=== PATIENT | male | born 1990 | race Caucasian/White ===

== ENCOUNTER 2017-03-11 16:01 | Emergency (ER) | payer OTHER ==
[~2017-03-11] VITALS: Ht 177.8 cm; Wt 77.3 kg
[~2017-03-11 16:01] MED LIST: CLIN-78 PO; CLON0.1T PO; HYDR-4003 PO; NITR0.4T6 SL; OMEP40CA3 PO
[2017-03-11 16:05] VITALS: BP 154/94; RESP 18; O2SAT 98
--- NOTE | 2017-03-11 17:47 | ED.REPORT ---
HPI-Dental/Mouth Prob Date of Service Mar 11, 2017 ED Provider: Fernandez Flores MD Patient is a 26 year old male who presents to the ED complaining of left upper tooth pain that began this morning. The patient states that he had some swelling at this side of his face when he woke up this morning, but he did not experience any pain. However over the course of the day he developed severe pain around increased swelling. Swelling of his gums became so prominent that they are nearly covering his teeth. He is febrile on arrival to the ED at 38.4C. He is seen by [facility], but has not been at their facility for some time. However today he went to [facility] for evaluation of his dental pain. He was informed that he will need to have two teeth pulled. However he was referred to the ED for IV or IM antibiotics, as there was concern for significant infection. The patient denies difficulty breathing or swallowing. Nursing Notes Stated Complaint: TOOTH AND MOUTH INFECTION Chief Complaint: Dental Nursing Notes Reviewed: Yes Allergies: Coded Allergies: hydrocodone (Verified Allergy, Intermediate, Rash,Itching,, 04/29/16) Scheduled Clindamycin (Clindamycin) 300 Mg Capsule 300 MG PO QID Clindamycin (Clindamycin) 300 Mg Capsule 300 MG PO QID Clonidine (Clonidine) 0.1 Mg Tablet 0.2 MG PO BID Omeprazole (Prilosec) 40 Mg Capsule.dr 40 MG PO DAILY Scheduled PRN Hydrocodone-Acetaminophen 5-325 mg (Hydrocodone-Acetaminophen 5-325 mg) 1 Each Tablet 1 TABLET PO Q4H PRN PRN For Pain Nitroglycerin SL (Nitroglycerin SL) 0.4 Mg Tab.subl 0.4 MG SL Q5MIN PRN PRN For Chest Pain oxyCODONE-Acetaminophen 5-325 mg (oxyCODONE-Acetaminophen 5-325 mg) 1 Each Tablet 1 TAB PO Q4H PRN PRN For Pain General Time Seen by MD: 17:07 Chief Complaint Tooth pain Hx Obtained From: Patient Arrived By: Walk-in Onset Occurred: 9 - 12 hours ago Symptom Duration: Since onset Quality: Painful Severity: Current: Severe Severity: Maximum: Severe Recent Healthcare: No recent doctor visit, No recent hospitalization Similar Sx Previous: Yes Past Medical History Past Medical History Notes: Giselle Cardoso Past Medical History Multiple ED visits for recurrent abd pain, nausea vomiting with extensive workup, including multiple negative CTs, GI referral, negative endoscopy by pt report. Concern for possible cannabis hyperemesis syndrome. Workup on 01/11 for elevated troponin, normal cadiac cath Reports: GERD Past Surgical History Neck cyst removal Family History Reports: CAD < 40 years old Smoking History Current Every Day Smoker Social History Recently moved to [facility] from [facility] around August 2014, has not found a local MD or DDS Alcohol Use: Denies alcohol use Drug Use: THC Other Social History: Good social support, Local resident Occupation lives with girlfriend works at [employer] Amb[employer] Status Independent Review of Systems Constitutional: Reports: Fever Ears / Nose / Throat: Reports: Mouth pain, Toothache Respiratory: Denies: Shortness of breath GI: Denies: Dysphagia Complete sys rev & neg: except as marked. Physical Exam Initial Vital Signs Vital Signs (First) Date Time Temp Pulse Resp B/P Pulse Ox O2 Delivery O2 Flow Rate FiO2 03/11/17 16:05 38.4 107 18 154/94 98 03/11/17 18:38 Room Air Initial VS: Reviewed Skin: Warm, Dry, No cyanosis Neurologic: Alert, Oriented, Nonfocal Psychiatric: Mood/affect normal, Behavior normal, Normal thought content ENT: Airway patent Dental / Gums: Positive: Decay extensive, Dentition poor Abscess about tooth number 11 and 12, fluctuant in appearing. Swelling of the buccal aspect of the gums with mild swelling but without induration or fluctuance. No submental or sublingual swelling. Handling secretions well. No swelling under the neck or of the submandibular region. Neck: Supple, No swelling General/Constitutional: Awake, Alert, No acute distress Head / Eyes: Normocephalic, PERRL Respiratory / Chest: No respiratory distress, No stridor Heart Rate / Rhythm: Positive: Tachycardia Upper Extremity / MS: Full range of motion, No deformity Lower Extremity / Pelvis / MS: Full range of motion, No deformity Procedures Dental Nerve Block Dental Nerve Block Note: Indication: I&D Dental Abscess Time: 18:22 Block Performed by: ED physician Consent / Setup / Site Prep: Consent from patient, Time-out performed, Mucous membrane dried, Hand hygiene observed, Stand sterile technique, Sterile drapes applied Anesthesia: Subperiostial infiltrate Local Anesthesia: Lidocaine 1% Post-Procedure / Complications: No complications, Condition improved, Tolerated procedure well, Patient stable, No bleeding Incision & Drainage Abscess Time: 18:25 Consent / Setup / Site Prep: Consent from patient, Time-out performed, Hand hygiene observed, Stand sterile technique Location of Abscess: left upper jaw Local Anesthesia: Lidocaine 1% Pus Drained: Small, No purulence, Bloody Irrigation: No Post-Procedure / Complications: No complications, Condition improved, Tolerated procedure well, Patient stable Re-Eval/Medical Decision Med Decision/Clinical Course Patient is a 26 year old male who presents to the ED complaining of left upper tooth pain that began this morning. The patient states that he had some swelling at this side of his face when he woke up this morning, but he did not experience any pain. However over the course of the day he developed severe pain around increased swelling. Swelling of his gums became so prominent that they are nearly covering his teeth. He is febrile on arrival to the ED at 38.4C. He is seen by [facility], but has not been at their facility for some time. However today he went to [facility] for evaluation of his dental pain. He was informed that he will need to have two teeth pulled. However he was referred to the ED for possible IV or IM antibiotics, as there was concern for significant infection. The patient denies difficulty breathing or swallowing. Here in the emergency department the patient has obvious dental abscess with a fluctuant region about the buccal aspect of his gums and globally poor dentition with many caries and teeth that appear to need to be pulled. That being said there is no evidence of Dipak angina, airway obstruction or significant cellulitis/abscess involving his face. The region of infection appears to be quite localized. Dental block was performed and is abscess was easily incised and a copious amount of pus was drained. His airway continues to be widely patent and he is nontoxic in appearance. While he was initially febrile this resolved after receiving Tylenol. He clearly needs antibiotics though I do not see any indication that he requires IV antibiotics or admission at this time. He was given a dose of clindamycin here and will follow up this week with his dentist. Patient was discharged home with Oxycodone and Clindamycin. He was advised to return immediately should he develop any increasing swelling, fevers, swelling about the sublingual region, redness/swelling of the face or increasing pain. Prior to discharge follow-up and return precautions were reviewed in detail with the patient who verbalized understanding and agreement with the plan. The patient was discharged in stable condition. Source of Hx: Old records Re-Evaluation/Progress : Time of Eval: 18:30 Patient Status: Condition improved Re-Evaluation/Progress Note: Patient is improved after I&D. Patient understands and agrees with the plan to be discharged home. Discharge instructions and follow-up discussed. It is crucial that he follow-up with his dentist. All questions were addressed. Return to the ED warnings given. Counseled Regarding: Diagnosis, Need for follow-up, When/why to return to ED Discharge & Departure Primary Impression: Dental abscess Additional Impressions: Pain due to dental caries Fever Fever type: unspecified Qualified Code: R50.9 - Fever, unspecified Disposition: Home Discharge Condition All VS Reviewed: Yes Condition: Stable Patient Instructions: Dental Abscess (ED) Additional Instructions: Thank you for seeking care at the emergency room. You were seen today for your dental abscess, which was drained in the emergency department. Our primary goal today in the ED was to evaluate you for any life-threatening conditions. Your evaluation was reassuring. Apply ice packs to the left side of your face to reduce swelling. You will be discharged with a prescription for Clindamycin, an antibiotics. You have also been given Oxycodone, use as directed for pain. It is crucial that you follow-up with your dentist at [facility] as planned. You should return to the ED immediately if you develop worsening fevers, difficulty swallowing, shortness of breath, worsening pain or swelling, or any other concerning signs or symptoms. Thank you for letting us partake in your care today. Narcotic Pain Medicine You have been prescribed a narcotic for pain relief. These drugs are usually combined with acetaminophen (Tylenol#3, Percocet, Darvocet, Anexsia, Vicodin) or aspirin (Empirin#3, Percodan, Synalogs-DC) for increased effect. Narcotics act on the central nervous system to reduce pain; they also impair mental alertness and physical abilities. We advise you not to drink alcohol, drive a car, or operate dangerous equipment when you are taking these drugs. You can lessen stomach irritation from your medicine by taking it with meals or a full glass of water. Common side effects of narcotics are: Nausea and vomiting, heartburn, constipation, dizziness, sleepiness, and mood changes. If you have bothersome side effects or symptoms of an allergic reaction (itching, hives, rash), stop taking your medicine and call your doctor or the emergency room right away. Please keep your narcotic medicine well out of the reach of children. Referrals: Sunita Stone (PCP) Scribe Attestation Portions of this note were transcribed by Patricia Beverly. I, Dr. Flores personally performed the history, physical exam and medical decision-making; I reviewed and confirmed the accuracy of the information in the transcribed note. Signed by: Jazz Marquez, 03/11/2017 [id number] copies to: Sunita Stone Beck O MD Mar 11, 2017 17:47 Patricia Beverly Mar 11, 2017 18:14
[2017-03-11] MEDS ORDERED: CLIN-78 PO (18:30)
[2017-03-11] MEDS ORDERED: OXYC1TAB24 PO (18:30)
[2017-03-11 18:38] VITALS: BP 129/66; PULSE 65; RESP 17; O2SAT 99
== END 2017-03-11 18:39 | disposition home or self-care (01) ==
LOC: SED 16:01
DX: K04.7 Periapical abscess without sinus (principal); R50.9 Fever, unspecified; K21.9 Gastro-esophageal reflux disease without esophagitis; F17.200 Nicotine dependence, unspecified, uncomplicated; Z88.5 Allergy status to narcotic agent

== ENCOUNTER 2017-06-08 13:44 | Emergency (ER) | payer OTHER ==
[~2017-06-08] VITALS: Ht 177.8 cm; Wt 79.5 kg
[~2017-06-08 13:44] MED LIST changes: +OXYC1TAB24 PO
[2017-06-08 13:55] VITALS: BP 140/92; PULSE 100; RESP 20; O2SAT 99
[2017-06-08] MEDS ORDERED: 0.9% Sodium Chloride 1,000 ML IV ONE (17:49)
[2017-06-08] MEDS ORDERED: Clindamycin Inj 600 MG in IV Premix 1 EACH IV ONE (17:55)
--- NOTE | 2017-06-08 18:17 | ED.REPORT ---
HPI-General Illness Date of Service Jun 08, 2017 ED Provider: Jorden Kennedy MD Pt is a 26 year old male who presents to the ED with complaints of right upper teeth pain, onset around 0700 this morning. He reports that the pain and swelling have been increasing since its onset. Pt reports pain at 10/10. He describes the pain as a throbbing. He declines nausea, vomiting, chest pain, shortness of breath, difficulty breathing, or any other symptoms. He reports that this happened to him 2-3 months ago as well. He states that he is in the process of getting his teeth removed to get dentures. Pt declines feeling febrile. He additionally reports the pain radiating upward towards his head, but does not endorse an independent headache. Nursing Notes Stated Complaint: INFECTION/SWELLING FACE AND CHEEK,RIGHT Chief Complaint: General Complaint Nursing Notes Reviewed: Yes Allergies: Coded Allergies: hydrocodone (Verified Allergy, Intermediate, Rash,Itching,, 06/08/17) Scheduled Clindamycin (Clindamycin) 300 Mg Capsule 300 MG PO QID Clindamycin (Clindamycin) 300 Mg Capsule 300 MG PO QID Clindamycin (Clindamycin) 150 Mg Capsule 150 MG PO TID Clonidine (Clonidine) 0.1 Mg Tablet 0.2 MG PO BID Omeprazole (Prilosec) 40 Mg Capsule.dr 40 MG PO DAILY Scheduled PRN Hydrocodone-Acetaminophen 5-325 mg (Hydrocodone-Acetaminophen 5-325 mg) 1 Each Tablet 1 TABLET PO Q4H PRN PRN For Pain Nitroglycerin SL (Nitroglycerin SL) 0.4 Mg Tab.subl 0.4 MG SL Q5MIN PRN PRN For Chest Pain oxyCODONE-Acetaminophen 5-325 mg (oxyCODONE-Acetaminophen 5-325 mg) 1 Each Tablet 1 TAB PO Q4H PRN PRN For Pain General Time Seen by MD: 15:44 Chief Complaint Rash Hx Obtained From: Patient Arrived By: Walk-in Sudden in Onset?: Yes Onset Occurred: 9 - 12 hours ago Symptom Duration: Since onset Location: : Face Quality: Painful Severity: Current: Moderate Severity: Maximum: Severe Similar Sx Previous: Yes Past Medical History Past Medical History Notes: Giselle Cardoso Past Medical History Multiple ED visits for recurrent abd pain, nausea vomiting with extensive workup, including multiple negative CTs, GI referral, negative endoscopy by pt report. Concern for possible cannabis hyperemesis syndrome. Workup on 01/11 for elevated troponin, normal cadiac cath Reports: GERD Past Surgical History Neck cyst removal Family History Reports: CAD < 40 years old Smoking History Current Every Day Smoker Social History Recently moved to [facility] from [facility] around August 2014, has not found a local MD or DDS Alcohol Use: Denies alcohol use Drug Use: THC Other Social History: Good social support, Local resident Occupation lives with girlfriend works at [employer] Status Independent Review of Systems Full Review of Systems Constitutional: Denies: Chills, Fever, Malaise, Weakness - generalized Ears / Nose / Throat: Reports: Toothache Respiratory: Denies: Non-productive cough, Shortness of breath, Wheezing Cardiovascular: Denies: Chest pain, Syncope GI: Denies: Abdominal pain, Constipation, Diarrhea, Nausea, Vomiting Male: Denies Dysuria, Denies Flank pain, Denies Urinary frequency, Denies Urinary urgency Musculoskeletal: Denies: Extremity pain, Neck pain Skin: Reports Rash, Reports Swelling Neurologic: Denies: Change LOC, Dizziness, Headache, Syncope, Weakness Complete sys rev & neg: except as marked. Physical Exam Nursing note and vitals reviewed. Constitutional: Well-developed, well-nourished. Not diaphoretic. Head: Normocephalic and atraumatic. Mouth/Throat: Oropharynx is clear and moist. No oropharyngeal exudate. Poor dentition Area with soreness, about the lateral aspect of his face shows no abscess, small abscess of the right top front tooth. Facial swelling from the angle of the mandible up towards the right eye. No significant erythema Tender on the right side of his face as compared to the left. Eyes: EOM are normal. Pupils are equal, round, and reactive to light. Neck: Supple, no tracheal deviation. Cardiovascular: Normal rate, regular rhythm. Equal and intact distal pulses throughout. Pulmonary/Chest: Effort normal and breath sounds normal. No respiratory distress. Abdominal: Soft. No distension. There is no tenderness, rebound, or guarding. Bowel sounds present. Musculoskeletal: Range of motion grossly intact, moving all extremities. No edema or tenderness appreciated. Neurological: AOx3. Grossly nonfocal exam. Strength and sensation intact and equal to bilateral upper and lower extremities. Skin: Warm and dry, no rashes or pallor appreciated. Psychiatric: Appropriate mood and affect. Behavior appears normal. Vital Signs Vital Signs Date Time Temp Pulse Resp B/P Pulse Ox O2 Delivery O2 Flow Rate FiO2 06/08/17 21:56 99 18 135/84 94 Room Air 06/08/17 18:56 37.8 94 133/87 96 Room Air 06/08/17 13:55 36.9 100 20 140/92 99 Room Air Initial VS: Reviewed Interpretation & Diagnostics CT Face: IMPRESSION: 1. Prominent villegas sinus disease. 2. Soft tissue edema surrounding the right lateral/anterior maxilla with mild lucency between teeth numbers 5 and 6. This could be related to dental disease. No abscess is identified. Dictated by: Martina Reina M.D. on 06/08/2017 at 19:53 Lab Results Interpretation Result Diagram: 06/08/178 06/08/171827 Test 06/08/17 18:28 06/08/17 19:13 White Blood Count 14.1th/mm3 (3.8-10.1) Red Blood Count 4.85mil/mm3 (4.40-5.80) Hemoglobin 15.4g/dL (13.8-17.2) Hematocrit 43.1% (41.0-50.0) Mean Corpuscular Volume 88.9fL (81-100) Mean Corpuscular Hemoglobin 31.8pg (27.0-35.0) Mean Corpuscular Hemoglobin Concent 35.7% (32.0-37.0) Red Cell Distribution Width 12.8% (12.3-15.4) Platelet Count 283bil/L (150-400) Neutrophils (%) (Auto) 74.3% (40-74) Lymphocytes (%) (Auto) 15.9% (14-46) Monocytes (%) (Auto) 7.4% (4-12) Eosinophils (%) (Auto) 1.5% (0-5) Basophils (%) (Auto) 0.3% (0-3) Prothrombin Time 10.0sec (8.1-12.5) Prothromb Time International Ratio 0.94ratio Activated Partial Thromboplast Time 25.4sec (22.8-33.0) Sodium Level 135mEq/L (134-144) Potassium Level 4.0mEq/L (3.5-5.2) Chloride Level 98mEq/L (97-108) Carbon Dioxide Level 23mmol/L (18-29) Blood Urea Nitrogen 7mg/dL (6-20) Creatinine 0.66mg/dL (0.76-1.27) Estimat Glomerular Filtration Rate 155mL/min (>59) Glucose Level 113mg/dL (60-99) Lactic Acid Level 0.6mmol/L (0.4-2.0) Calcium Level 9.2mg/dL (8.5-10.1) Magnesium Level 1.8mg/dL (1.6-2.6) Total Bilirubin 0.6mg/dL (0.0-1.2) Aspartate Amino Transf (AST/SGOT) 30U/L (0-50) Alanine Aminotransferase (ALT/SGPT) 32U/L (0-44) Alkaline Phosphatase 84U/L (25-150) Total Protein 7.2g/dL (6.4-8.4) Albumin 4.3g/dL (3.4-5.0) Lipase 18U/L (13-60) Hold Urine Received (Received) CT Head Interpretation IMPRESSION: 1. No acute intracranial process. Dictated by: Martina Reina M.D. on 06/08/2017 at 20:03 Interpretation / Wet Read by: Interpret - Radiologist Re-Eval/Medical Decision Med Decision/Clinical Course 26-year-old male presenting to the ED for evaluation of right-sided facial swelling and dental pain. Hemodynamically stable here in the ED, afebrile upon arrival. No vision changes, normal extraocular movements. Head CT negative for acute abnormality. CT of the patient's face does not demonstrate any evidence of abscess, but does have findings consistent with sinusitis. He does have a white blood cell count of 14.1, otherwise his CBC and CMP are grossly within normal limits. I do not see an abscess that needs to be drained at this time. Patient given a dose of IV clindamycin here in the ED and I will write him a prescription to go home with, however he needs to follow up with dentistry within the next 1-2 days as I am concerned this could progress. I discussed this with the patient at length, who was agreeable to the plan, verbalized understanding. Careful return precautions were discussed. Source of Hx: Old records Time of Eval: 20:39 Re-Evaluation/Progress Note: Pt is rechecked and informed of his imaging results and the plan to discharge him at this time. He understands and agrees, all questions are addressed. Counseled Regarding: Diagnosis, Lab results, When/why to return to ED Discharge & Departure Primary Impression: Dental infection Additional Impression: Sinusitis Sinusitis location: unspecified location Chronicity: unspecified Qualified Code: J32.9 - Chronic sinusitis, unspecified Disposition: Home Discharge Condition All VS Reviewed: Yes Condition: Stable Patient Instructions: Sinusitis (ED) Additional Instructions: Thank you for seeking care in the emergency department today. I believe that you are experiencing a dental infection. Follow up with your dentist tomorrow to further address this issue. Take the antibiotics as prescribed. I suggest you take 400mg of ibuprofen along with 1000mg of Tylenol to alleviate your pain. Return to the emergency department with any fevers, worsening pain or any other concerning symptoms. Referrals: Snuita Stone (PCP) Jazz Attestation Portions of this note were transcribed by Layne Hunter. I, Dr. Kennedy personally performed the history, physical exam and medical decision-making; I reviewed and confirmed the accuracy of the information in the transcribed note. Signed by: Jazz Chaudhary, 06/08/2017 20:38 copies to: Sunita Stone William B MD Jun 08, 2017 18:17 RADHA HUNTER Jun 08, 2017 18:23 copies to: Sunita Stone William B MD Jun 08, 2017 18:17 RADHA HUNTER Jun 08, 2017 18:23
[2017-06-08 18:34] LABS: BASOPHILS % (AUTO) 0.3 % (0-3); EOSINOPHILS % (AUTO) 1.5 % (0-5); MONOCYTES % (AUTO) 7.4 % (4-12); Mean Corpuscular Hemoglobin 31.8 pg (27.0-35.0); Mean Corpuscular Volume 88.9 fL (81-100); NEUTROPHILS % (AUTO) 74.3 % (40-74); Platelet Count 283 bil/L (150-400)
[2017-06-08 18:56] VITALS: BP 133/87; PULSE 94; O2SAT 96
[2017-06-08 19:02] LABS: INR 0.94 ratio
[2017-06-08 19:03] LABS: Magnesium 1.8 mg/dL (1.6-2.6)
--- NOTE | 2017-06-08 20:03 | DRSVH ---
PROCEDURE: CT FACE WITH CONTRAST ([id number]) INDICATIONS: acute facial swelling; eval for abscess, other abn TECHNIQUE: After the administration of intravenous contrast, 3.0 mm axial sections acquired from the mid-neck to the frontal sinuses, with coronal reformatting. For radiation dose reduction, the following was use d: automated exposure control. COMPARISON: [facility], CT, CT BRAIN WO CON, 06/08/2017, 19:37. FINDINGS: Image quality: Excellent. Soft tissues: There is mild edema and fat stranding within the subcutaneous fat at the base of the nose and along the soft tissues overlying the right anterior maxilla. Adjacent teeth demonstrate a small area of lucency between teeth #5 and 6. Vascular: Visualized vascular structures appear patent throughout. Bony vascular foramina and canal s appear normal. Bones: Facial bones appear intact, without fractures, erosions, or destruction. Visualized portions of the skull base and auditory canals also appear normal. Sinuses: There is significant bilateral maxillary sinus mucosal thickening and fluid, right greater t loza left. There is prominent right frontal and left sphenoid the callosal thickening is present. Brissa ining sinuses demonstrate scattered areas of mild mucosal thickening. Mastoid air cells are aerated. IMPRESSION: 1. Prominent villegas sinus disease. 2. Soft tissue edema surrounding the right lateral/anterior maxilla with mild lucency between teeth n umbers 5 and 6. This could be related to dental disease. No abscess is identified. Dictated by: Martina Reina M.D. on 06/08/2017 at 19:53 Approved by: Martina Reina M.D. on 06/08/2017 at 20:01
--- NOTE | 2017-06-08 20:07 | DRSVH ---
PROCEDURE: CT BRAIN WITHOUT CONTRAST ([id number]) INDICATIONS: acute facial swelling; eval for abscess, other abn TECHNIQUE: Noncontrast 4.5 mm thick angled axial sections acquired from the foramen magnum to the vertex, with c oronal reformats. COMPARISON: None. FINDINGS: Image quality: Excellent. CSF spaces: Basal cisterns are patent. No extra-axial fluid collections. Ventricles are normal in size and shape. Brain: No midline shift. No intracranial masses or hemorrhage. Ortiz-white matter interface is norm al. Skull and face: Calvarium and visualized facial bones are intact, without suspicious lesions. Sinuses: Visualized sinuses demonstrate pansinus is also thickening and fluid. IMPRESSION: 1. No acute intracranial process. Dictated by: Martina Reina M.D. on 06/08/2017 at 20:03 Approved by: Martina Reina M.D. on 06/08/2017 at 20:05
[2017-06-08] MEDS ORDERED: CLIN-77 PO (21:09)
[2017-06-08 21:56] VITALS: BP 135/84; PULSE 99; RESP 18; O2SAT 94
[2017-06-09] MEDS ORDERED: OXYC-474 PO (11:00)
== END 2017-06-08 21:56 | disposition home or self-care (01) ==
LOC: SED 13:44
DX: K04.7 Periapical abscess without sinus (principal); J32.9 Chronic sinusitis, unspecified; K21.9 Gastro-esophageal reflux disease without esophagitis; F17.200 Nicotine dependence, unspecified, uncomplicated; Z88.5 Allergy status to narcotic agent
CPT/HCPCS: 36415; 70450; 70487; 80053; 83605; 83690; 83735; 85025; 85610; 85730; 96361; 96365; 99285; J7030; Q9967

== ENCOUNTER 2017-06-09 08:37 | Emergency (ER) | payer OTHER ==
[~2017-06-09] VITALS: Ht 177.8 cm; Wt 79.5 kg
[~2017-06-09 08:37] MED LIST changes: +CLIN-77 PO
[2017-06-09 08:47] VITALS: BP 137/92; PULSE 111; RESP 13; O2SAT 98
--- NOTE | 2017-06-09 09:04 | ED.REPORT ---
HPI-General Illness Date of Service Jun 09, 2017 ED Provider: Dr. Portillo 26 y/o male with a hx of HTN presents to the ED complaining of worsening right sided facial swelling, onset yesterday. His right eye is completely shut due to the swelling. The pt was seen at the ED yesterday for facial swelling and dental pain and was diagnosed with dental infection and sinusitis. He was given IV antibiotics and a prescription for oral antibiotics. He has not filled his medication yet. The pt planned to call his dentist today but he decided to come in to the ED as his swelling was significantly worse this morning. Nursing Notes Stated Complaint: RT EYE SWOLLEN SHUT Chief Complaint: Dental Nursing Notes Reviewed: Yes Allergies: Coded Allergies: hydrocodone (Verified Allergy, Intermediate, Rash,Itching,, 06/08/17) Scheduled Clindamycin (Clindamycin) 300 Mg Capsule 300 MG PO QID Clindamycin (Clindamycin) 300 Mg Capsule 300 MG PO QID Clindamycin (Clindamycin) 150 Mg Capsule 150 MG PO TID Clonidine (Clonidine) 0.1 Mg Tablet 0.2 MG PO BID Omeprazole (Prilosec) 40 Mg Capsule.dr 40 MG PO DAILY Scheduled PRN Hydrocodone-Acetaminophen 5-325 mg (Hydrocodone-Acetaminophen 5-325 mg) 1 Each Tablet 1 TABLET PO Q4H PRN PRN For Pain Nitroglycerin SL (Nitroglycerin SL) 0.4 Mg Tab.subl 0.4 MG SL Q5MIN PRN PRN For Chest Pain Oxycodone (Roxicodone) 5 Mg Tablet 5 MG PO Q4H PRN PRN For Pain oxyCODONE-Acetaminophen 5-325 mg (oxyCODONE-Acetaminophen 5-325 mg) 1 Each Tablet 1 TAB PO Q4H PRN PRN For Pain General Time Seen by MD: 09:04 Chief Complaint Other (right side facial swelling) Hx Obtained From: Patient Arrived By: Walk-in Sudden in Onset?: Yes Onset Occurred: Yesterday Location: : Face Quality: Painful Radiation: : Does not radiate Severity: Current: Moderate Severity: Maximum: Moderate Recent Healthcare: Recent doctor visit Similar Sx Previous: No Past Medical History Past Medical History Notes: Giselle Cardoso Past Medical History Multiple ED visits for recurrent abd pain, nausea vomiting with extensive workup, including multiple negative CTs, GI referral, negative endoscopy by pt report. Concern for possible cannabis hyperemesis syndrome. Reports: GERD Past Surgical History Neck cyst removal Family History Reports: CAD < 40 years old Smoking History Current Every Day Smoker Social History Recently moved to [facility] from [facility] around August 2014, has not found a local MD or DDS Alcohol Use: Denies alcohol use Drug Use: THC Other Social History: Good social support, Local resident Occupation lives with girlfriend works at [employer] Status Independent Review of Systems Reports: right side facial swelling Complete sys rev & neg: except as marked. Physical Exam Vital Signs Vital Signs Date Time Temp Pulse Resp B/P Pulse Ox O2 Delivery O2 Flow Rate FiO2 06/09/17 11:10 37.1 95 16 125/81 95 Room Air 06/09/17 10:46 37.1 95 16 125/81 95 Room Air 06/09/17 08:47 37.7 111 13 137/92 98 Room Air Initial VS: Reviewed Neck: Supple, Non-tender, Full range of motion Respiratory: Breath sounds normal, Clear to auscultation, No respiratory distress Cardiovascular: Regular rate & rhythm, Heart sounds normal, Intact distal pulses Extremities: Vascular intact, Neuro intact, No swelling, No tenderness Skin: Warm, Dry, No cyanosis Neurologic: Alert, Oriented, Nonfocal General/Constitutional: Awake, Alert, Cooperative Head / Eyes: Atraumatic, Normocephalic, EOMI (no pain with EOM) ENT: Atraumatic, Airway patent Multiple dental caries around upper teeth. No periapical abscess or gingival swelling. Maxillary and periorbital swelling. Interpretation & Diagnostics Lab Results Interpretation Result Diagram: 06/09/17 0915 06/09/17 0915 Test 06/09/17 09:15 White Blood Count 11.2th/mm3 (3.8-10.1) Red Blood Count 4.78mil/mm3 (4.40-5.80) Hemoglobin 15.0g/dL (13.8-17.2) Hematocrit 41.7% (41.0-50.0) Mean Corpuscular Volume 87.2fL (81-100) Mean Corpuscular Hemoglobin 31.4pg (27.0-35.0) Mean Corpuscular Hemoglobin Concent 36.0% (32.0-37.0) Red Cell Distribution Width 12.9% (12.3-15.4) Platelet Count 251bil/L (150-400) Neutrophils (%) (Auto) 76.2% (40-74) Lymphocytes (%) (Auto) 12.9% (14-46) Monocytes (%) (Auto) 8.5% (4-12) Eosinophils (%) (Auto) 1.4% (0-5) Basophils (%) (Auto) 0.4% (0-3) Sodium Level 133mEq/L (134-144) Potassium Level 4.1mEq/L (3.5-5.2) Chloride Level 96mEq/L (97-108) Carbon Dioxide Level 22mmol/L (18-29) Blood Urea Nitrogen 6mg/dL (6-20) Creatinine 0.61mg/dL (0.76-1.27) Estimat Glomerular Filtration Rate 170mL/min (>59) Glucose Level 113mg/dL (60-99) Calcium Level 9.1mg/dL (8.5-10.1) Hold Cardozo Top Tube Received (Received) Re-Eval/Medical Decision Med Decision/Clinical Course Mild facial swelling no evidence of orbital cellulitis, no periapical abscess, no trismus. White blood cell count is down trending, Unasyn given. Will give strict return and follow-up precautions. Time of Eval: 10:33 Patient Status: Condition improved Re-Evaluation/Progress Note: Rechecked pt. Discussed lab results, diagnosis and plan to discharge. Pt understands and agrees with the plan. F/U instructions and RTER warning given. All questions addressed. Counseled Regarding: Diagnosis, Lab results, Need for follow-up, When/why to return to ED Discharge & Departure Primary Impression: Dental infection Additional Impression: Sinusitis Sinusitis location: maxillary Chronicity: acute Recurrence: not specified as recurrent Qualified Code: J01.00 - Acute maxillary sinusitis, unspecified Disposition: Home Discharge Condition All VS Reviewed: Yes Condition: Stable Additional Instructions: Thank you for entrusting us with your care today. You have a dental infection and sinusitis. Make an appointment with your dentist and with your primary care provider as soon as possible. There is no sign of infection on your eyelid. Take the pain medication as prescribed. The emergency department is always available for any concerns Referrals: Sunita Stone (PCP) Scribe Attestation Portions of this note were transcribed by August Contreras. I,, personally performed the history, physical exam and medical decision-making;I reviewed and confirmed the accuracy of the information in the transcribed note. Signed by Jazz Guerin. 06/09/17 11:25 copies to: Sunita Stone Timothy S DO Jun 09, 2017 09:04 August Contreras Jun 09, 2017 09:11
[2017-06-09] MEDS ORDERED: Ampicillin-Sulbactam Inj 3,000 MG in 0.9% Sodium Chloride 100 ML IV ONE (09:10)
[2017-06-09 09:23] LABS: BASOPHILS % (AUTO) 0.4 % (0-3); EOSINOPHILS % (AUTO) 1.4 % (0-5); MONOCYTES % (AUTO) 8.5 % (4-12); Mean Corpuscular Hemoglobin 31.4 pg (27.0-35.0); Mean Corpuscular Volume 87.2 fL (81-100); NEUTROPHILS % (AUTO) 76.2 % (40-74); Platelet Count 251 bil/L (150-400)
[2017-06-09] MEDS ORDERED: 0.9% Sodium Chloride 1,000 ML IV ONE (10:10)
[2017-06-09] MEDS ORDERED: HYDROmorphone 0.5 mg/0.5 mL iSecure Syringe IVPUSH ONE (10:10)
[2017-06-09 10:46] VITALS: BP 125/81; PULSE 95; RESP 16; O2SAT 95
[2017-06-09] MEDS ORDERED: OXYC-474 PO (11:00)
[2017-06-09 11:10] VITALS: BP 125/81; PULSE 95; RESP 16; O2SAT 95
== END 2017-06-09 11:12 ==
LOC: SED 08:37
DX: K04.6 Periapical abscess with sinus (principal); J01.00 Acute maxillary sinusitis, unspecified; I10 Essential (primary) hypertension; K21.9 Gastro-esophageal reflux disease without esophagitis; F17.200 Nicotine dependence, unspecified, uncomplicated; Z88.5 Allergy status to narcotic agent
CPT/HCPCS: 36415; 80048; 85025; 96361; 96365; 96375; 99284; J0295; J1170; J1885; J7030